=== PATIENT | male | born 1970 | race Hispanic/Latino ===

== ENCOUNTER 2019-10-02 17:25 | Inpatient (IN) | payer OTHER ==
[~2019-10-02] VITALS: Ht 172.7 cm; Wt 120.2 kg
[2019-10-02] MEDS ORDERED: SODIUM CHLORIDE 0.9% 1000ML 1,000 ML IV STA (17:34)
[2019-10-02 17:57] LABS: BASOPHILS % 1.1 % (0.0-1.0); EOSINOPHILS # (AUTO) 0.1 (0.0-0.4); EOSINOPHILS % 3.4 % (0.0-6.0); HEMATOCRIT 32.4 % (38.2-49.6); HEMOGLOBIN 11.8 g/dL (14.0-18.0); LYMPHOCYTES # (AUTO) 1.4 (1.0-3.2); LYMPHOCYTES % 38.8 % (18.0-39.1); MEAN CORPUSCULAR HEMOGLOBIN 34.5 pg (28-32); MEAN CORPUSCULAR HGB CONC 36.4 g/dL (31-35); MEAN CORPUSCULAR VOLUME 94.7 fL (81-99); MONOCYTES # (AUTO) 0.3 (0.2-0.8); MONOCYTES % 7.1 % (4.4-11.3); NEUTROPHILS # (AUTO) 1.7 (2.1-6.9); NEUTROPHILS % 49.3 % (38.7-80.0); PLATELET COUNT 119 x10e3/uL (140-360); RED BLOOD COUNT 3.42 x10e6/uL (4.3-5.7); RED CELL DISTRIBUTION WIDTH 14.1 % (11.7-14.4)
[2019-10-02 18:02] LABS: INR 1.28; PROTHROMBIN TIME 16.8 seconds (11.9-14.5)
[2019-10-02 18:13] LABS: ALANINE AMINOTRANSFERASE 20 IU/L (0-55); ALBUMIN 3.6 g/dL (3.5-5.0); ALBUMIN/GLOBULIN RATIO 0.9 (0.8-2.0); ALKALINE PHOSPHATASE 102 IU/L (40-150); ANION GAP 11.5 mmol/L (8-16); BLOOD UREA NITROGEN 10 mg/dL (7-26); BUN/CREATININE RATIO 14 (6-25); CALCIUM 8.7 mg/dL (8.4-10.2); CARBON DIOXIDE 25 mmol/L (22-29); CHLORIDE 107 mmol/L (98-107); CREATINE KINASE 165 IU/L (30-200); EST GLOMERULAR FILTRATION RATE > 60 ML/MIN (60-); GLUCOSE 117 mg/dL (74-118); LIPASE 34 U/L (8-78); POTASSIUM 3.5 mmol/L (3.5-5.1); SODIUM 140 mmol/L (136-145)
[2019-10-02 18:20] LABS: B-TYPE NATRIURETIC PEPTIDE2 46.3 pg/mL (0-100)
[2019-10-02] MEDS ORDERED: LACTULOSE SYRUP 20 GM/30 ML UDC PO PRN (18:45)
[2019-10-02] MEDS ORDERED: ASPIRIN 81 MG CHEW TAB PO ONE (18:45)
--- NOTE | 2019-10-02 18:55 | Diagnostic Imaging Report ---
History: Altered mental status, weakness Comparison studies: Brain MRI on 07/2019 Technique: Axial images were obtained from the skull base to the vertex. Coronal and sagittal reconstructions obtained from the axial data. Dose modulation, iterative reconstruction, and/or weight based adjustment of the mA/kV was utilized to reduce the radiation dose to as low as reasonably achievable. Intravenous contrast: None Findings: Scalp/skull: No abnormalities. No fractures, blastic or lytic lesions. Extra-axial spaces: No masses. No fluid collections. Brain sulci: Appropriate for age. Ventricles: Normal in size and configuration. No hydrocephalus. Parenchyma: No abnormal densities. No masses, hemorrhage, acute or chronic cortical vascular insults. Sellar/suprasellar region: No abnormalities Craniocervical junction: Patent foramen magnum. No Chiari one malformation. Incidental findings: None. IMPRESSION: 1. No abnormalities. 2. No changes when compared to the MRI on 08/04/2019. Signed by: Dr. Morgan Salinas M.D. on 10/02/2019 6:51 PM
--- NOTE | 2019-10-02 18:58 | Diagnostic Imaging Report ---
EXAM: CHEST SINGLE (PORTABLE) DATE: 10/02/2019 5:34 PM INDICATION: Sepsis, weakness ^ORDER PLACED BY ^[id number] ^1830 ^Y COMPARISON: Chest x-ray, 08/07/2019 FINDINGS: Lines and tubes: None. Previous left PICC is no longer seen. Heart size normal. No focal pulmonary opacity, pleural effusion or pneumothorax. Upper abdomen unremarkable. No acute bony abnormality. IMPRESSION: No evidence for acute disease. Signed by: Dr. Ralph Camp M.D. on 10/02/2019 6:55 PM
[2019-10-02] MEDS: SODIUM CHLORIDE 0.9% 1000ML 1,000 ML IV SCH (19:20)
[2019-10-02] MEDS: ENOXAPARIN SODIUM INJ 100 MG/ML SYR SC SCH (19:20)
[2019-10-02] MEDS ORDERED: VITAMIN d PO (19:23)
[2019-10-02] MEDS ORDERED: LEVOTHYROXINE50 MCG PO (19:23)
[2019-10-02] MEDS ORDERED: ACETAMINOPHEN 325 MG TAB PO PRN (19:30)
[2019-10-02] MEDS: LACTULOSE SYRUP 20 GM/30 ML UDC PO SCH (20:00)
--- NOTE | 2019-10-02 20:30 | NUR ---
Received report from ER nurse.
--- NOTE | 2019-10-02 20:45 | NUR ---
Patient arrived to floor via stretcher. Patient lethargic with eyes close. Family at bedside.
[2019-10-02] MEDS ORDERED: ENOXAPARIN SODIUM INJ 100 MG/ML SYR SC SCH (21:00)
[2019-10-02 21:51] VITALS: BP 141/81
[2019-10-02 22:00] VITALS: BP 130/83
[2019-10-02 22:50] LABS: AMPHETAMINES SCREEN,URINE NEGATIVE (NEGATIVE); PHENCYCLIDINE SCREEN,URINE NEGATIVE (NEGATIVE)
[2019-10-02 22:51] LABS: BENZODIAZEPINES SCREEN,URINE NEGATIVE (NEGATIVE); CLARITY,URINE CLEAR (CLEAR); COLOR,URINE YELLOW (YELLOW); LEUKOCYTE ESTERASE ,URINE NEGATIVE (NEGATIVE); NITRITE,URINE NEGATIVE (NEGATIVE); PROTEIN,URINE DIPSTICK NEGATIVE (NEGATIVE)
[2019-10-02 22:52] LABS: BILIRUBIN,URINE NEGATIVE (NEGATIVE); KETONES,URINE NEGATIVE (NEGATIVE); URINE UROBILINOGEN 0.2 mg/dL (0.2 - 1)
[2019-10-02 23:10] LABS: BACTERIA,URINE FEW /HPF; EPITHELIAL CELLS,URINE FEW /LPF; RBC,URINE 0-5 /HPF (0-5); WBC,URINE (MAN) 0-5 /HPF (0-5)
[2019-10-03] VITALS (9 sets, daily range): BP systolic 130–146; BP diastolic 74–87
--- NOTE | 2019-10-03 01:00 | NUR ---
Patient admit and assessment completed. Pateint denies pain or discomfort at this time
[2019-10-03 02:18] LABS: CREATINE KINASE MB 0.7 ng/mL (0-5.0)
[2019-10-03] MEDS: SODIUM CHLORIDE 0.9% 1000ML 1,000 ML IV SCH ×3 (03:46→22:52)
--- NOTE | 2019-10-03 04:28 | NUR ---
Patient up ambulating to bathroom. Urine sample collected and sent to the lab.
[2019-10-03 06:14] LABS: EOSINOPHILS # (AUTO) 0.2 (0.0-0.4); EOSINOPHILS % 4.8 % (0.0-6.0); HEMATOCRIT 29.8 % (38.2-49.6); HEMOGLOBIN 10.7 g/dL (14.0-18.0); LYMPHOCYTES # (AUTO) 1.6 (1.0-3.2); LYMPHOCYTES % 49.5 % (18.0-39.1); MEAN CORPUSCULAR HEMOGLOBIN 34.3 pg (28-32); MEAN CORPUSCULAR HGB CONC 35.9 g/dL (31-35); MEAN CORPUSCULAR VOLUME 95.5 fL (81-99); MONOCYTES # (AUTO) 0.3 (0.2-0.8); MONOCYTES % 8.6 % (4.4-11.3); NEUTROPHILS # (AUTO) 1.1 (2.1-6.9); NEUTROPHILS % 36.1 % (38.7-80.0); PLATELET COUNT 76 x10e3/uL (140-360); RED BLOOD COUNT 3.12 x10e6/uL (4.3-5.7)
[2019-10-03 06:32] LABS: ALANINE AMINOTRANSFERASE 16 IU/L (0-55); ALKALINE PHOSPHATASE 71 IU/L (40-150); ANION GAP 7.6 mmol/L (8-16); BLOOD UREA NITROGEN 8 mg/dL (7-26); BUN/CREATININE RATIO 13 (6-25); CALCIUM 7.9 mg/dL (8.4-10.2); CARBON DIOXIDE 26 mmol/L (22-29); CHLORIDE 109 mmol/L (98-107); CREATININE, SERUM 0.61 mg/dL (0.72-1.25); EST GLOMERULAR FILTRATION RATE > 60 ML/MIN (60-); GLUCOSE 84 mg/dL (74-118); POTASSIUM 3.6 mmol/L (3.5-5.1); SODIUM 139 mmol/L (136-145)
[2019-10-03] MEDS: ENOXAPARIN SODIUM INJ 100 MG/ML SYR SC SCH ×2 (07:00→19:00)
[2019-10-03] MEDS: LACTULOSE SYRUP 20 GM/30 ML UDC PO SCH ×4 (09:15→21:20)
[2019-10-03 10:08] LABS: CREATINE KINASE 147 IU/L (30-200)
[2019-10-03] MEDS ORDERED: RIFAXIMIN 200 MG TAB PO STA (10:33)
[2019-10-03 10:51] LABS: CREATINE KINASE MB < 1.00 ng/mL (0-4.3)
[2019-10-03] MEDS: RIFAXIMIN 550 MG TABLET PO SCH ×2 (11:00→21:20)
--- NOTE | 2019-10-03 14:31 | NUR ---
DATE OF CONSULTATION: 10/03/2019 CONSULTING PHYSICIAN: Juanita Gonzalez PA-C, Hematology-Oncology Service. REASON FOR CONSULTATION: Evaluation and management of patient with pancytopenia, who was present with altered mental status. HISTORY OF PRESENTING ILLNESS: Mr. Farris is a 48-year-old young gentleman with no significant past medical history other than chronic scaly skin and history of meningitis in childhood. He is known to me from previous admission in July and follows up in clinic in which we see him for anemia and thrombocytopenia. He now presented again to the emergency room for similar symptoms of altered mental status concerning for hepatic encephalopathy. Due to pancytopenia, Hematology/Oncology has been consulted to assist with management. Presently, the patient is sitting up in the best in [facility] with mother at bedside. They are supposed to follow up with Dr. Justin Harry for procedure (liver biopsy?) and MRI with liver protocol. Otherwise, he denies any new complaints. PAST MEDICAL HISTORY: 1. History of childhood meningitis. 2. Chronic scaly skin of uncertain etiology. PAST SURGICAL HISTORY: Unknown. SOCIAL HISTORY: No reported history of smoking, alcohol use, or illicit drug use. ALLERGIES: NO KNOWN DRUG ALLERGIES. CURRENT MEDICATIONS: Reviewed as per electronic medical record. REVIEW OF SYSTEMS: A 14-point review of system not obtainable. LABORATORY DATA: White blood cell count of 3.15, hemoglobin 10.7, hematocrit 29.8, platelets 76 BUN 8, creatinine 0.61 Ammonia 284 --> 192 Cardiac enzymes normal Lipase 34 PT 16.8 INR 1.28 UDS negative ASSESSMENT AND PLAN: Mr. Farris is a 48-year-old young gentleman with no significant past medical history other than chronic scaly skin and history of meningitis in childhood. He is known to me from previous admission in July and follows up in clinic in which we see him for anemia and thrombocytopenia. He now presented again to the emergency room for similar symptoms of altered mental status concerning for hepatic encephalopathy. Due to pancytopenia, Hematology/Oncology has been consulted to assist with management. Presently, the patient is sitting up in the best in [place] with mother at bedside. They are supposed to follow up with Dr. Justin Harry for procedure (liver biopsy?) and MRI with liver protocol. Otherwise, he denies any new complaints. 1. Hepatic Encephalopathy: Appears related to underlying liver disease of uncertain etiology. Recent abdominal US revealed coarse echotexture of liver, normal spleen, and prominent vessels adjacent to the kidney and spleen on the left may represent varices from portal hypertension. CXR and Brain CT scan on admission unremarkable. On lactulose and Xifaxan. Ammonia level improving. Will benefit from MRI with liver protocol for further evaluation which is being set up outpatient. Monitor for now. 2. Leukopenia: Uncertain etiology, abd US on 08/04/19 revealed splenomegaly which could be contributing however repeat US outpatient revealed normal spleen. Neutropenia predominant. Counts stable. FAUSTO negative. Patient is planning for bone marrow biopsy to be done outpatient. Monitor closely. 3. Thrombocytopenia: Appears secondary to underlying liver disease. Patient counts currently trending down however remain in noncritical range and actually improved from prior admission. Monitor for now. 4. Anemia: Recent anemia panel performed outpatient unremarkable without iron or vitamin deficiency and no evidence of hemolysis with normal retic count. Hemoglobin trending down. Monitor for now. 5. DVT prophylaxis: On Lovenox. Above plan discussed with . Thank you for the consult. I will continue to be available. Please call with questions.
[2019-10-03 18:17] LABS: CREATINE KINASE MB 1.1 ng/mL (0-5.0)
--- NOTE | 2019-10-03 19:33 | NUR ---
report given to oncoming nurse , walking rounds complete.
--- NOTE | 2019-10-03 21:20 | NUR ---
PATIENT IS RESTING IN BED IN STABLE CONDITION, NO SIGNS OF CONFUSION OR DISTRESS NOTED. IV FLUIDS ARE RUNNING AT ORDERED RATE AND PATIENT VOICES NO PAIN AT THIS TIME. DRY, FLAKING SKIN IS NOTED ON PATIENT, BED IS IN LOWEST POSITION, SIDE RAILS ARE UP, CALL LIGHT IS WITHIN REACH, WILL CONTINUE TO MONITOR.
[2019-10-04] VITALS (8 sets, daily range): BP systolic 121–153; BP diastolic 62–87
--- NOTE | 2019-10-04 00:40 | Consultation ---
DATE OF CONSULTATION: 10/03/2019 Cardiology Consult Note REASON FOR CONSULT: Elevated troponins. CHIEF COMPLAINT: Confusion. HISTORY OF PRESENT ILLNESS: The patient is a 48-year-old male with previous history of cardiovascular disease, history of cirrhosis, and hepatic encephalopathy, who was brought in by his mother for confusion and shakiness. Denies any chest pain, shortness of breath, lower extremity edema, orthopnea, or PND. Denies any palpitations or syncope. No prior history of DE stents or CABG. The patient is not a diabetic. The patient does not smoke, drink, or abuse drugs. He currently denies any ongoing chest pains. PAST MEDICAL HISTORY: As described above. SOCIAL HISTORY: He does not smoke, drink, or abuse drugs. FAMILY HISTORY: Noncontributory. REVIEW OF SYSTEMS: As per HPI, otherwise negative. OUTPATIENT MEDICATIONS: Reviewed. ALLERGIES: REVIEWED. NO KNOWN DRUG ALLERGIES. OBJECTIVE: VITAL SIGNS: Temperature afebrile, pulse 70, respiratory rate 20, blood pressure 140/87, and saturating 98% on room air. GENERAL: Middle-aged man, in no acute distress. CARDIOVASCULAR: Regular rate and rhythm. No murmurs, rubs, or gallops. LUNGS: Clear to auscultation bilaterally. ABDOMEN: Soft, nontender, nondistended. Obese. NEURO AND PSYCH: Alert and oriented to person, place, and time. Normal affect. INPATIENT MEDICATIONS: Reviewed. LABORATORY DATA: Reviewed, notable for hemoglobin of 10.7, platelet count of 76. Troponin on admission was noted to be 0.323 with normal CK and CK-MB. BNP was 46. TELEMETRY DATA: Reviewed, shows normal sinus rhythm. IMAGING DATA: Reviewed. Brain CT shows no abnormalities. Chest x-ray showed no evidence of acute disease. ASSESSMENT AND PLAN: 1. Hepatic encephalopathy. 2. Elevated troponin. PLAN: Elevated troponin, not consistent with acute coronary syndrome. The patient has no symptoms. EKG was nonischemic. Echocardiogram is pending. Once acute medical issues resolve, recommend doing a stress test on Sunday. Thank you for this consult. We will continue to follow. Calixto Faulkner MD KVP/MODL /[id number]
[2019-10-04] MEDS: SODIUM CHLORIDE 0.9% 1000ML 1,000 ML IV SCH ×3 (01:31→21:03)
--- NOTE | 2019-10-04 05:45 | NUR ---
PAGED DR. Christopher HERNÁNDEZ REGARDING ORDERS FOR PATIENT TO HAVE LIVER AND SPLEEN IMAGE SCAN WITH NUCLEAR MED. INFORMED THAT NUCLEAR MED DOES NOT DO THIS ON THE WEEKEND UNLESS IT IS A STAT ORDER, AWAITING CALL BACK.
[2019-10-04 07:30] LABS: BASOPHILS % 0.8 % (0.0-1.0); EOSINOPHILS # (AUTO) 0.1 (0.0-0.4); EOSINOPHILS % 4.7 % (0.0-6.0); HEMATOCRIT 29.5 % (38.2-49.6); HEMOGLOBIN 10.4 g/dL (14.0-18.0); LYMPHOCYTES # (AUTO) 1.3 (1.0-3.2); LYMPHOCYTES % 52.2 % (18.0-39.1); MEAN CORPUSCULAR HEMOGLOBIN 33.7 pg (28-32); MEAN CORPUSCULAR HGB CONC 35.3 g/dL (31-35); MEAN CORPUSCULAR VOLUME 95.5 fL (81-99); MONOCYTES # (AUTO) 0.2 (0.2-0.8); MONOCYTES % 7.9 % (4.4-11.3); NEUTROPHILS # (AUTO) 0.9 (2.1-6.9); NEUTROPHILS % 34.4 % (38.7-80.0); PLATELET COUNT 72 x10e3/uL (140-360); RED BLOOD COUNT 3.09 x10e6/uL (4.3-5.7); RED CELL DISTRIBUTION WIDTH 13.9 % (11.7-14.4)
[2019-10-04 07:53] LABS: ALANINE AMINOTRANSFERASE 15 IU/L (0-55); ALBUMIN 3.2 g/dL (3.5-5.0); ALBUMIN/GLOBULIN RATIO 1.1 (0.8-2.0); ALKALINE PHOSPHATASE 70 IU/L (40-150); ANION GAP 6.5 mmol/L (8-16); BLOOD UREA NITROGEN 7 mg/dL (7-26); BUN/CREATININE RATIO 11 (6-25); CALCIUM 7.9 mg/dL (8.4-10.2); CARBON DIOXIDE 26 mmol/L (22-29); CHLORIDE 110 mmol/L (98-107); CREATININE, SERUM 0.66 mg/dL (0.72-1.25); EST GLOMERULAR FILTRATION RATE > 60 ML/MIN (60-); GLUCOSE 83 mg/dL (74-118); POTASSIUM 3.5 mmol/L (3.5-5.1); SODIUM 139 mmol/L (136-145)
[2019-10-04] MEDS: RIFAXIMIN 550 MG TABLET PO SCH ×2 (09:13→21:03)
[2019-10-04] MEDS: LACTULOSE SYRUP 20 GM/30 ML UDC PO SCH ×3 (09:13→21:03)
--- NOTE | 2019-10-04 10:52 | Progress Note ---
DATE: 10/04/2019 Cardiology Progress Note SUBJECTIVE: The patient reports that he feels quite well. This morning, he does endorse being a little bit anxious, but otherwise well. Denies any chest pain or shortness of breath. OBJECTIVE: VITAL SIGNS: Temperature 97.4, pulse 68, respiratory rate 20, blood pressure 147/75, and oxygen saturation 93% on room air. CARDIOVASCULAR MEDICATIONS: None at this time. LABORATORY DATA: WBC 2.53, hemoglobin 10.3, hematocrit 29.5, and platelets 72. Sodium 139, potassium 3.5, BUN 7, creatinine 0.66, AST 35, ALT 15, and alkaline phosphatase 70. TELEMETRY: Normal sinus rhythm. OBJECTIVE: GENERAL: Alert and oriented x3. Resting comfortably in bed. Does not appear to be in acute distress. Mother at the bedside. NECK: Supple. No JVD noted. CARDIOVASCULAR: Regular rate and rhythm. No murmurs, no gallops. LUNGS: Clear to auscultation throughout. ABDOMEN: Soft, round, and nontender. LOWER EXTREMITIES: Trace edema bilaterally. 2+ pedal pulses. ASSESSMENT: 1. Hepatic encephalopathy. 2. Elevated troponin. 3. Hypertension. 4. History of cirrhosis. 5. Altered mental status. PLAN: Elevated troponins not consistent with acute coronary syndrome. The patient appears and reports to be asymptomatic at this time. We will continue to monitor this patient very closely. Monitor mental status closely. Echocardiogram, awaiting review. Recommendations will follow. Plan for a stress test on Sunday. Dictated by Suma Alvarado NP MD HERNANDEZ Landin/YOKO /[id number] cc: Suma Alvarado NP
--- NOTE | 2019-10-04 11:05 | NUR ---
DATE OF CONSULTATION: 10/03/2019 CONSULTING PHYSICIAN: Juanita Gonzalez PA-C, Hematology-Oncology Service. REASON FOR CONSULTATION: Evaluation and management of patient with pancytopenia, who was present with altered mental status. HISTORY OF PRESENTING ILLNESS: Patient resting comfortably with mother at bedside. He denies any new complaints. REVIEW OF SYSTEMS: A 14-point review of system negative unless otherwise stated in the HPI. LABORATORY DATA: Vitals signs: Reviewed per SEP. Afebrile. White blood cell count of 2.53, hemoglobin 10.4, hematocrit 29.5, platelets 72 BUN 7, creatinine 0.66 Ammonia 192 --> 88 ASSESSMENT AND PLAN: Mr. Farris is a 48-year-old young gentleman with no significant past medical history other than chronic scaly skin and history of meningitis in childhood. He is known to me from previous admission in July and follows up in clinic in which we see him for anemia and thrombocytopenia. He now presented again to the emergency room for similar symptoms of altered mental status concerning for hepatic encephalopathy. Due to pancytopenia, Hematology/Oncology has been consulted to assist with management. 1. Hepatic Encephalopathy: Appears related to underlying liver disease of uncertain etiology. Recent abdominal US revealed coarse echotexture of liver, normal spleen, and prominent vessels adjacent to the kidney and spleen on the left may represent varices from portal hypertension. CXR and Brain CT scan on admission unremarkable. On lactulose and Xifaxan. Ammonia level improving. AMS resolved. Planning for liver and spleen scan. Monitor for now. GI on board. 2. Leukopenia: Uncertain etiology, abd US on 08/04/19 revealed splenomegaly which could be contributing however repeat US outpatient revealed normal spleen. Neutropenia predominant. FAUSTO negative. Counts trending down slighty, if counts continue to trend down he may benefit from growth factor support. Patient is planning for bone marrow biopsy to be done outpatient. Monitor closely. 3. Thrombocytopenia: Appears secondary to underlying liver disease. Patient counts are stable and remain in noncritical range and actually improved from prior admission. Monitor for now. 4. Anemia: Recent anemia panel performed outpatient unremarkable without iron or vitamin deficiency and no evidence of hemolysis with normal retic count. Hemoglobin stable. Monitor for now. 5. Elevated troponin: Plan for stress test Sunday. Cardiology on board. 6. DVT prophylaxis: On Lovenox on hold for procedure. Above plan discussed with . Thank you for the consult. I will continue to be available. Please call with questions.
--- NOTE | 2019-10-04 15:07 | Progress Note ---
DATE: 10/04/2019 Internal Medicine Progress Note SUBJECTIVE: The patient is sleeping right now. OBJECTIVE: VITAL SIGNS: Show blood pressure 121/62, temperature 36.6, heart rate 74 per minute, respiratory rate 20 per minute, oxygen saturation 96%. LABORATORY DATA: On the CBC; white count 2.53, hemoglobin 10.4, hematocrit 29.5, platelet count 72,000. BMP; sodium 139, potassium 3.5, chloride 110, carbon dioxide 26, BUN 7, creatinine 0.66, glucose 83, calcium 7.9, total bilirubin 1.9, AST 35, ALT 15, alkaline phosphatase 70, ammonia 88, creatine kinase 156, troponin 0.196. Total protein 6.1, albumin 3.2, globulin 2.9. Toxicology screen is completely negative. Coagulation showed PT elevated at 16.8, INR 1.28. CT of the head showed no abnormalities, no change compared with MRI done on August 04, 2019. Chest x-ray showed no evidence of acute disease. IMPRESSION: 1. Pancytopenia, most likely secondary to cirrhosis. 2. Hepatic encephalopathy. 3. Obesity. PLAN OF TREATMENT: We are going to continue current medication, which include normal saline 125 mL an hour, Tylenol 650 mg q.4 hours as needed for pain or fever, lactulose 20 g three times a day and Xifaxan twice a day. I am going to order ammonia level tomorrow. MD STONEY Mckinley/YOKO /[id number]
--- NOTE | 2019-10-04 19:23 | NUR ---
REPORT GIVEN TO ENID SAMUEL. PT AAOX3. ACYANOTIC. PT VOIDING TO TOILET IN RESTROOM. NO DISTRESS NOTED.
[2019-10-04] MEDS ORDERED: PHYTONADIONE 10 MG/ML AMP SQ ONE (23:30)
[2019-10-05] VITALS (8 sets, daily range): BP systolic 127–143; BP diastolic 63–91
[2019-10-05] MEDS: SODIUM CHLORIDE 0.9% 1000ML 1,000 ML IV SCH ×2 (01:31→05:30)
--- NOTE | 2019-10-05 07:27 | NUR ---
Assumed care at 0700. Pt resting in bed watching television. No distress noted. Call light in reach. Siderails up x2. Bed low and locked.
[2019-10-05] MEDS: LACTULOSE SYRUP 20 GM/30 ML UDC PO SCH (08:39)
[2019-10-05] MEDS: RIFAXIMIN 550 MG TABLET PO SCH ×2 (08:40→20:30)
--- NOTE | 2019-10-05 10:34 | NUR ---
HEMATOLOGY/ONCOLOGY PROGRESS NOTE: DATE OF CONSULTATION: 10/03/2019 CONSULTING PHYSICIAN: Juanita Gonzalez PA-C, Hematology-Oncology Service. REASON FOR CONSULTATION: Evaluation and management of patient with pancytopenia, who was present with altered mental status. HISTORY OF PRESENTING ILLNESS: Patient resting comfortably with mother at bedside. He complains of diarrhea overnight due to lactulose, refused dose this morning. Heading down to nuc med liver/spleen scan. REVIEW OF SYSTEMS: A 14-point review of system negative unless otherwise stated in the HPI. LABORATORY DATA: 10/05/2019: Vitals signs: Reviewed per SEP. Afebrile. 10/04/2019: White blood cell count of 2.53, hemoglobin 10.4, hematocrit 29.5, platelets 72 BUN 7, creatinine 0.66 Ammonia 192 --> 88 --> 102 ASSESSMENT AND PLAN: Mr. Farris is a 48-year-old young gentleman with no significant past medical history other than chronic scaly skin and history of meningitis in childhood. He is known to me from previous admission in July and follows up in clinic in which we see him for anemia and thrombocytopenia. He now presented again to the emergency room for similar symptoms of altered mental status concerning for hepatic encephalopathy. Due to pancytopenia, Hematology/Oncology has been consulted to assist with management. 1. Hepatic Encephalopathy: Appears related to underlying liver disease of uncertain etiology. Recent abdominal US revealed coarse echotexture of liver, normal spleen, and prominent vessels adjacent to the kidney and spleen on the left may represent varices from portal hypertension. CXR and Brain CT scan on admission unremarkable. On lactulose and Xifaxan. Ammonia level improving. AMS resolved. Planning for liver and spleen scan today. Monitor for now. GI on board. 2. Leukopenia: Uncertain etiology, abd US on 08/04/19 revealed splenomegaly which could be contributing however repeat US outpatient revealed normal spleen. Neutropenia predominant. FAUSTO negative. Counts trending down slighty, if counts continue to trend down he may benefit from growth factor support. Patient is planning for bone marrow biopsy to be done outpatient. CBC in the morning. Monitor closely. 3. Thrombocytopenia: Appears secondary to underlying liver disease. Patient counts are stable and remain in noncritical range. Monitor for now. 4. Anemia: Recent anemia panel performed outpatient unremarkable without iron or vitamin deficiency and no evidence of hemolysis with normal retic count. Hemoglobin stable. Monitor for now. 5. Elevated troponin: Plan for stress test Sunday. Cardiology on board. 6. DVT prophylaxis: On Lovenox on hold for procedure. Patient ambulatory. Above plan discussed with Dr. Dominguez. Thank you for the consult. I will continue to be available. Please call with questions.
--- NOTE | 2019-10-05 12:16 | Diagnostic Imaging Report ---
Liver-Spleen Scan Clinical information: 48 M with shaking and disorientation x3 days; concern for liver disease Comparison: Abdominal ultrasound 08/04/2019; CT abdomen/pelvis 08/03/2019 Report: Following intravenous administration of 6 mCi of Tc-99 and sulfur colloid, images of the upper abdomen and lower chest were obtained in multiple projections. The liver mildly reduced in size. The spleen appears normal in size. Distribution of tracer activity is heterogeneous throughout the hepatic parenchyma with two focal areas of relatively increased tracer in the right hepatic lobe. Distribution of tracer in the spleen in homogenous. Increased tracer activity is prominent in marrow and mildly increased tracer is seen in the lungs diffusely. No apparent shift of tracer from the liver is present to suggest hypersplenism. Impression: 1. Findings consistent with moderate cirrhosis of the liver given size of liver and extent of colloid shift to the marrow and lungs. 2. Foci of increased Kupfer cell activity in the right hepatic lobe consistent with foci of liver parenchyma regeneration. 3. Hypersplenism is not present. Signed by: Dr. Jacque Tan M.D. on 10/05/2019 12:13 PM
--- NOTE | 2019-10-05 12:35 | NUR ---
Cinthia Roach at Dr. Bruce Harry's answering service to inform him of pt's refusal of lactulose and findings of liver/spleen scan with nuclear med. Currently awaiting call back.
[2019-10-05] MEDS ORDERED: LACTULOSE SYRUP 20 GM/30 ML UDC PO PRN (13:00)
[2019-10-05] MEDS ORDERED: LACTULOSE SYRUP 20 GM/30 ML UDC PO NR (13:15)
--- NOTE | 2019-10-05 13:36 | Progress Note ---
DATE: 10/05/2019 Internal Medicine Progress Note SUBJECTIVE: The patient is doing well. He was refusing early on the lactulose. We are going to change it to once a day and continue monitoring the ammonia level very carefully. PHYSICAL EXAMINATION: HEART: Showed regular rhythm. Normal S1, S2 sound. LUNGS: Clear bilaterally. ABDOMEN: Soft. EXTREMITIES: Show no edema. VITAL SIGNS: Blood pressure 137/65, heart rate 66 per minute, respiratory rate 20 per minute, temperature 97.9. LABORATORY DATA: On the blood work, we have CBC; white blood count 2.53, hemoglobin 10.4, hematocrit 29.5, platelet count 72,000. On the BMP; sodium 139, potassium 3.5, chloride 110, CO2 of 26, BUN 7, creatinine 0.66, glucose 83, calcium 7.9, total bilirubin 1.9, AST 35, ALT 15, alkaline phosphatase is 70, ammonia is 102. CK 156, CK-MB 1.10, troponin 0.196. Total protein 6.1, albumin 3.2. IMPRESSION: 1. Pancytopenia secondary to cirrhosis of the liver. 2. Hepatic encephalopathy. 3. Obesity. 4. Cirrhosis of the liver. PLAN OF TREATMENT: We are going to continue lactulose. We are going to increase to three times a day. Ammonia level is elevated. The patient also refusing to take the lactulose anyway. Continue Tylenol 650 mg q.6 hours as needed for mild pain. Continue lactulose 30 g daily, and Xifaxan 550 mg twice a day. Ammonia level tomorrow. MD STONEY Mckinley/YOKO /[id number]
--- NOTE | 2019-10-05 19:12 | NUR ---
Pt resting in bed with eyes closed. Acyanotic. No distress noted. Patient's mother present at bedside. Report given to ENID José
--- NOTE | 2019-10-05 20:30 | NUR ---
PATIENT IS RESTING IN BED IN STABLE CONDITION, NO SIGNS OF DISTRESS NOTED. IV FLUIDS ARE NOW DISCONTINUED AND PATIENT VOICES NO PAIN AT THIS TIME. DRY, FLAKING SKIN IS NOTED ON PATIENT, BED IS IN LOWEST POSITION, SIDE RAILS ARE UP, CALL LIGHT IS WITHIN REACH, WILL CONTINUE TO MONITOR.
[2019-10-06] VITALS (9 sets, daily range): BP systolic 122–138; BP diastolic 64–79
[2019-10-06 06:08] LABS: BASOPHILS % 1.2 % (0.0-1.0); EOSINOPHILS # (AUTO) 0.2 (0.0-0.4); EOSINOPHILS % 6.3 % (0.0-6.0); HEMATOCRIT 29.4 % (38.2-49.6); HEMOGLOBIN 10.5 g/dL (14.0-18.0); LYMPHOCYTES # (AUTO) 1.3 (1.0-3.2); LYMPHOCYTES % 52.2 % (18.0-39.1); MEAN CORPUSCULAR HEMOGLOBIN 34.1 pg (28-32); MEAN CORPUSCULAR HGB CONC 35.7 g/dL (31-35); MEAN CORPUSCULAR VOLUME 95.5 fL (81-99); MONOCYTES # (AUTO) 0.2 (0.2-0.8); MONOCYTES % 6.3 % (4.4-11.3); NEUTROPHILS # (AUTO) 0.9 (2.1-6.9); NEUTROPHILS % 33.6 % (38.7-80.0); PLATELET COUNT 68 x10e3/uL (140-360); RED BLOOD COUNT 3.08 x10e6/uL (4.3-5.7); RED CELL DISTRIBUTION WIDTH 13.9 % (11.7-14.4)
[2019-10-06] MEDS: LACTULOSE SYRUP 20 GM/30 ML UDC PO SCH (08:55)
[2019-10-06] MEDS: RIFAXIMIN 550 MG TABLET PO SCH ×2 (08:55→20:07)
--- NOTE | 2019-10-06 09:00 | NUR ---
HEMATOLOGY/ONCOLOGY PROGRESS NOTE: DATE OF CONSULTATION: 10/03/2019 CONSULTING PHYSICIAN: Juanita Gonzalez PA-C, Hematology-Oncology Service. REASON FOR CONSULTATION: Evaluation and management of patient with pancytopenia, who was present with altered mental status. HISTORY OF PRESENTING ILLNESS: Patient resting comfortably, no new complaints. Ammonia trending back up. REVIEW OF SYSTEMS: A 14-point review of system negative unless otherwise stated in the HPI. LABORATORY DATA: 10/06/2019: Vitals signs: Reviewed per MAR. Afebrile. 10/04/2019: White blood cell count of 2.55, hemoglobin 10.5, hematocrit 29.4, platelets 68 10/05/2019: BUN 7, creatinine 0.66 Ammonia 192 --> 88 --> 102 --> 156 RADIOLOGY DATA: Liver/spleen NM scan: 1. Findings consistent with moderate cirrhosis of the liver given size of liver and extent of colloid shift to the marrow and lungs. 2. Foci of increased Kupfer cell activity in the right hepatic lobe consistent with foci of liver parenchyma regeneration. 3. Hypersplenism is not present. ASSESSMENT AND PLAN: Mr. Farris is a 48-year-old young gentleman with no significant past medical history other than chronic scaly skin and history of meningitis in childhood. He is known to me from previous admission in July and follows up in clinic in which we see him for anemia and thrombocytopenia. He now presented again to the emergency room for similar symptoms of altered mental status concerning for hepatic encephalopathy. Due to pancytopenia, Hematology/Oncology has been consulted to assist with management. 1. Hepatic Encephalopathy: Appears related to underlying liver disease. Recent abdominal US revealed coarse echotexture of liver, normal spleen, and prominent vessels adjacent to the kidney and spleen on the left may represent va rices from portal hypertension. CXR and Brain CT scan on admission unremarkable. On lactulose daily and Xifaxan BID. Ammonia level trending back up . AMS resolved. S/p liver/spleen NM scan revealed moderate cirrhosis and no signs of splenomegaly. Monitor for now. GI on board. 2. Leukopenia: Uncertain etiology although could be related to cirrhosis. Liver/spleen NM scan without splenomegaly. Neutropenia predominant. FAUSTO negative. Counts stable, if counts trend down he may benefit from growth factor support. Patient is planning for bone marrow biopsy to be done outpatient. Monitor closely. 3. Thrombocytopenia: Appears secondary to underlying liver disease. Patient counts are stable and remain in noncritical range. Monitor for now. 4. Anemia: Recent anemia panel performed outpatient unremarkable without iron or vitamin deficiency and no evidence of hemolysis with normal retic count. Hemoglobin stable. Monitor for now. 5. Elevated troponin: Plan for stress test today. Cardiology on board. 6. Obesity: Recommend lifestyle modifications inlcuding improving diet and exercise as his obesity is contributing to fatty liver. 7. DVT prophylaxis: SCDs/ambulatory. 8. Dispo: Patient clear for discharge from HemOnc standpoint. Ammonia trending up, lactulose adjustment per primary. Above plan discussed with Dr. Dominguez. Thank you for the consult. I will continue to be available. Please call with questions.
[2019-10-06 09:43] LABS: EOSINOPHILS % (MANUAL) 5 % (0-7); LYMPHOCYTES % (MANUAL) 54 % (19-48); MONOCYTES % (MANUAL) 5 % (3.4-9.0); NEUTROPHILS % (MANUAL) 35 % (40-74)
--- NOTE | 2019-10-06 09:45 | NUR ---
patient up in bed, AAOx3, Not in any distress, keep monitoring, family at bed side
--- NOTE | 2019-10-06 11:06 | NUR ---
CALL RECEIVED FROM [facility] AGENTS' RECORDS CLERK FOR [facility]; JAMILA @ [phone]. INFORMED PT'S AMMONIA LEVEL ELEVATED; 156. INFORMED PT AGREED TO TAKE LACTULOSE TODAY. STATES HE DOES NOT ANSWER THE PHONE AT HOME. STATES IF PT HAS ANY NEEDS, SHE IS AVAILABLE TO ASSIST W DC PLANNING.
--- NOTE | 2019-10-06 13:30 | Progress Note ---
DATE: 10/06/2019 Cardiology Progress Note SUBJECTIVE: The patient is feeling well. Denies any chest pain or shortness of breath. OBJECTIVE: VITAL SIGNS: Temperature is 96.5, heart rate 75, respirations 16, blood pressure is 133/73, oxygen saturation is 97% on room air. GENERAL: Well-appearing in no apparent distress. CARDIOVASCULAR: Regular rate and rhythm. LUNGS: Clear to auscultation. ABDOMEN: Soft, nontender, nondistended. EXTREMITIES: No clubbing, cyanosis, or edema. VASCULAR: 2+ pulses. NEUROLOGIC: No focal deficits noted. LABORATORY DATA: Reviewed. Troponins have remained negative. IMAGING DATA: Telemetry monitoring was reviewed by myself and shows normal sinus rhythm. ASSESSMENT: 1. Hepatic encephalopathy, resolved. 2. Minimally elevated troponin type 2. 3. Hypertension. 4. History of cirrhosis. PLAN: RECOMMENDATIONS: His elevated troponin level was not consistent with acute coronary syndrome. Subsequent levels within normal limits. He is asymptomatic from a cardiovascular standpoint. His echocardiogram showed preserved left ventricular systolic function. The patient does not require stress test as an inpatient. He could be discharged with outpatient followup. Darian Vann DO BM/MODL /[id number]
--- NOTE | 2019-10-06 19:25 | NUR ---
Received change of shift report from AM shift. Walking rounds completed.
--- NOTE | 2019-10-06 20:47 | NUR ---
Patient in bed. AAOx3. Denies pain or discomfort at this time. IV intact to right AC 20G HL. Continue monitor.
--- NOTE | 2019-10-06 23:58 | NUR ---
Patient resting quitly with no c/o at this time. Continue monitor.
[2019-10-07 03:53] VITALS: BP 138/71
[2019-10-07 07:41] VITALS: BP 146/74
[2019-10-07 08:21] VITALS: BP 146/74
--- NOTE | 2019-10-07 08:47 | NUR ---
HEMATOLOGY/ONCOLOGY PROGRESS NOTE: DATE OF CONSULTATION: 10/03/2019 CONSULTING PHYSICIAN: Juanita Gonzalez PA-C, Hematology-Oncology Service. REASON FOR CONSULTATION: Evaluation and management of patient with pancytopenia, who was present with altered mental status. HISTORY OF PRESENTING ILLNESS: Patient resting comfortably, no new complaints. REVIEW OF SYSTEMS: A 14-point review of system negative unless otherwise stated in the HPI. LABORATORY DATA: 10/06/2019: Vitals signs: Reviewed per MAR. Afebrile. 10/04/2019: White blood cell count of 2.55, hemoglobin 10.5, hematocrit 29.4, platelets 68 10/05/2019: BUN 7, creatinine 0.66 Ammonia 192 --> 88 --> 102 --> 156 --> 10/07/19 ammonia level pending RADIOLOGY DATA: Liver/spleen NM scan: 1. Findings consistent with moderate cirrhosis of the liver given size of liver and extent of colloid shift to the marrow and lungs. 2. Foci of increased Kupfer cell activity in the right hepatic lobe consistent with foci of liver parenchyma regeneration. 3. Hypersplenism is not present. ASSESSMENT AND PLAN: Mr. Farris is a 48-year-old young gentleman with no significant past medical history other than chronic scaly skin and history of meningitis in childhood. He is known to me from previous admission in July and follows up in clinic in which we see him for anemia and thrombocytopenia. He now presented again to the emergency room for similar symptoms of altered mental status concerning for hepatic encephalopathy. Due to pancytopenia, Hematology/Oncology has been consulted to assist with management. 1. Hepatic Encephalopathy: Appears related to underlying liver disease. Recent abdominal US revealed coarse echotexture of liver, normal spleen, and prominent vessels adjacent to the kidney and spleen on the left may represent va rices from portal hypertension. CXR and Brain CT scan on admission unremarkable. On lactulose daily and Xifaxan BID. Ammonia level trending back up. AMS resolved. S/p liver/spleen NM scan revealed moderate cirrhosis and no signs of splenomegaly. Monitor for now. GI on board. 2. Leukopenia: Uncertain etiology although could be related to cirrhosis. Liver/spleen NM scan without splenomegaly. Neutropenia predominant. FAUSTO negative. Counts stable, if counts trend down he may benefit from growth factor support. Patient is planning for bone marrow biopsy to be done outpatient. Monitor closely. 3. Thrombocytopenia: Appears secondary to underlying liver disease. Patient counts are stable and remain in noncritical range. Monitor for now. 4. Anemia: Recent anemia panel performed outpatient unremarkable without iron or vitamin deficiency and no evidence of hemolysis with normal retic count. Hemoglobin stable. Monitor for now. 5. Elevated troponin: Plan for stress test which can be done outpatient per Cardiology on board. 6. Obesity: Recommend lifestyle modifications including improving diet and exercise as his obesity is contributing to fatty liver. 7. DVT prophylaxis: SCDs/ambulatory. 8. Dispo: Patient clear for discharge from HemOnc standpoint. Discussed discharge follow up instructions with patient once he goes home.
[2019-10-07] MEDS: RIFAXIMIN 550 MG TABLET PO SCH (09:25)
[2019-10-07] MEDS: LACTULOSE SYRUP 20 GM/30 ML UDC PO SCH (09:25)
[2019-10-07 11:27] VITALS: BP 132/69
[2019-10-07 15:35] VITALS: BP 134/66
--- NOTE | 2019-10-07 18:01 | NUR ---
Dr Navin Harry cleared patient to go home, Dr Rodney Harry verbal discharge order recvd, patient discharged home, IV canula removed with tip intact, no ss of infiltration, no new prescriptions, His mom with him, patient denies any pain, no distress noted
--- NOTE | 2019-11-13 03:54 | Progress Note ---
DATE: 10/03/2019 Lj Farris had a consultation with Dr. Gina Dominguez, however, they had put my name, however, I have not seen this patient at all. MD TONY Clifton/YOKO /[id number] cc: Hansel Harry MD
--- NOTE | 2019-11-19 00:23 | Discharge Summary ---
CHIEF COMPLAINT: Weakness and lethargy, mild confusion. FINAL DIAGNOSIS: Liver cirrhosis; hepatic encephalopathy, resolved; anemia. DISPOSITION: Home. HOSPITAL COURSE: Consultants during the stay, cardiology due to laboratory findings of elevated troponins along with weakness, was reviewed by Dr. Faulkner and with his evaluation, impression was made of hepatic encephalopathy, elevated troponin. He states that elevated troponin is not consistent with acute coronary syndrome as no symptoms and EKG is nonischemic. Recommends that once the medical issues have resolved, recommending stress test. From the ER, the patient was placed on the Med-Surg floor. He was on cardiac diet. He was beginning treatment, was on IV fluids, continuing on his daily medications. Found to be more alert, responsive. There were no new complaints. Vital signs and labs were continued to be monitored closely. Noted that his issue of hepatic encephalopathy was resolving. It was noted that he also has pancytopenia. Ammonia levels continued to be reviewed. He was also being seen by GI regarding history of cirrhosis of the liver with generalized weakness, the elevated ammonia level and following Dr. Justin Harry's evaluation, his impression was hepatic encephalopathy, currently receiving lactulose and Xifaxan. Ammonia level has improved. The patient has become more alert and oriented. We will be monitoring CT of the abdomen. Anemia, guaiac-positive stool. The patient will need a full endoscopic evaluation, which can be done on an outpatient basis. He was seen by Dr. Dominguez regarding Hematology-Oncology issues and with his evaluation, his impression was hepatic encephalopathy, leukopenia, thrombocytopenia, anemia, elevated troponin, maintained DVT prophylaxis with Lovenox. We will be holding the medication for the procedure. Laboratory studies were beginning to show a decline in the potassium, which is being monitored further as the stay progressed. The hepatic encephalopathy was continued to improve. He will be maintained on Xifaxan and lactulose. The patient stabilized, recovered well, and was able to be discharged from the facility in stable condition. He will be discharged home. IMAGING: Brain CT reveals no abnormalities, no changes when compared to MRI of July of this year. Routine chest x-ray shows no evidence for acute disease. Final image was liver-spleen scan, nuclear medicine, findings reveal evidence consistent with moderate cirrhosis of liver given size of the liver and the extent of a colloid shift to the marrow and lungs. Foci of increased Kupffer cell activity in the right hepatic lobe consistent with foci of liver parenchyma regeneration. Hypersplenism is not present. Cultures; blood was negative. LABORATORY STUDIES: Begins with a CBC showing white cell count at 3500, H and H were 11.8 and 32.4, and platelets were 190,000. Followup CBCs shows white blood cell counts trending down to a final study of 2.55, H and H trended down to 10.5 and 29.4, and platelets were as low as final study of 68,000. Urinalysis unremarkable. Urine drug screen negative. Chemistries reveals initial panel, electrolytes to be normal. Total bilirubin was 1.8. AST was slightly elevated at 44. Ammonia level was elevated at 284. Cardiac enzymes were showing an elevated troponin of 0.323. Further electrolytes were stable. Repeat total bilirubin 1.8, AST improved slightly to 37. Followup troponin levels were normal. Followup ammonia level was 192, which continued to be monitored closely and fell down to 88, final study was 138. Final total bilirubin 1.9. Final AST 35. As mentioned, the patient stabilized and was able to be discharged home in stable condition. IVs were discontinued. No new prescriptions were written. The patient was denying any pain upon discharge. With his release, the patient will continue on his current diet. No equipments or supplies were necessary. No drain or Hodges was needed. Activity level as directed by me as well as Hematology and Cardiology. The patient will be following up with his PCP within 7 to 10 days. The patient will continue on levothyroxine sodium 50 mcg daily and vitamin D 50,000 units p.o. daily. Any further complaints or concerns that the patient has or any recurrence of possible similar symptoms, he will be contacting his PCP. Dictated by LEONIDES Alvarado Hansel Harry MD CC/ANASTASIAL /[id number]
== END 2019-10-07 18:05 | disposition home or self-care (01) | DRG 441 ==
LOC: ER 17:25 → ERHOLD 19:27 → MED/SURG3 20:15
DX: K72.90 Hepatic failure, unspecified without coma (principal); K72.00 Acute and subacute hepatic failure without coma; Z68.41 Body mass index [BMI] 40.0-44.9, adult; D72.819 Decreased white blood cell count, unspecified; D69.59 Other secondary thrombocytopenia; D64.9 Anemia, unspecified; K74.60 Unspecified cirrhosis of liver; I25.10 Atherosclerotic heart disease of native coronary artery without angina pectoris; E66.9 Obesity, unspecified; D73.1 Hypersplenism
CPT/HCPCS: 36415; 70450; 71045; 78215; 80053; 80307; 81001; 82140; 82550; 82553; 83605; 83690; 83880; 84484; 85025; 85610; 87040; 93005; 93306; 99284; A9541; J1650; J7030

== ENCOUNTER 2021-07-14 09:17 | Inpatient (IN) | payer OTHER ==
[~2021-07-14] VITALS: Ht 167.6 cm; Wt 99.8 kg
[~2021-07-14 09:17] MED LIST: LEVOTHYROXINE50 MCG PO; VITAMIN d PO
[2021-07-14] MEDS ORDERED: SODIUM CHLORIDE 0.9% 500ML 500 ML IV ONE ×2 (10:00→13:30)
[2021-07-14] MEDS ORDERED: CEFEPIME 2 GM in SODIUM CHLORIDE 0.9% 100 ML IV ONE (10:00)
[2021-07-14 10:23] LABS: BASOPHILS % 0.8 % (0.0-1.0); EOSINOPHILS % 0.8 % (0.0-6.0); HEMOGLOBIN 12.5 g/dL (14.0-18.0); LYMPHOCYTES # (AUTO) 0.7 (1.0-3.2); LYMPHOCYTES % 18.8 % (18.0-39.1); MEAN CORPUSCULAR HEMOGLOBIN 33.8 pg (28-32); MEAN CORPUSCULAR HGB CONC 34.7 g/dL (31-35); MEAN CORPUSCULAR VOLUME 97.3 fL (81-99); MONOCYTES # (AUTO) 0.6 (0.2-0.8); MONOCYTES % 15.7 % (4.4-11.3); NEUTROPHILS # (AUTO) 2.4 (2.1-6.9); NEUTROPHILS % 63.6 % (38.7-80.0); PLATELET COUNT 51 x10e3/uL (140-360); RED CELL DISTRIBUTION WIDTH 15.4 % (11.7-14.4)
[2021-07-14 10:35] LABS: INR 1.53; PROTHROMBIN TIME 19.6 seconds (11.9-14.5)
[2021-07-14 10:36] LABS: PARTIAL THROMBOPLASTIN TIME 48.2 seconds (23.8-35.5)
[2021-07-14 10:44] LABS: ALBUMIN 3.2 g/dL (3.5-5.0); ALBUMIN/GLOBULIN RATIO 0.9 (0.8-2.0); ANION GAP 13.6 mmol/L (8-16); CALCIUM 8.2 mg/dL (8.4-10.2); CREATININE, SERUM 0.68 mg/dL (0.72-1.25); MAGNESIUM 1.5 MG/DL (1.3-2.1); POTASSIUM 3.6 mmol/L (3.5-5.1)
[2021-07-14] MEDS ORDERED: SODIUM CHLORIDE 0.9% 1000ML 500 ML IV ONE (10:45)
[2021-07-14 10:50] LABS: CREATINE KINASE MB 0.6 ng/mL (0-5.0)
[2021-07-14 10:54] LABS: B-TYPE NATRIURETIC PEPTIDE2 99.8 pg/mL (0-100)
[2021-07-14] MEDS ORDERED: ACETAMINOPHEN 1000 MG/100 ML IV ONE (11:08)
[2021-07-14 11:33] LABS: CLARITY,URINE CLEAR (CLEAR); COLOR,URINE YELLOW (YELLOW)
[2021-07-14 11:34] LABS: KETONES,URINE TRACE (NEGATIVE); LEUKOCYTE ESTERASE ,URINE NEGATIVE (NEGATIVE); NITRITE,URINE NEGATIVE (NEGATIVE); PROTEIN,URINE DIPSTICK 2+ (NEGATIVE); URINE UROBILINOGEN 1 mg/dL (0.2 - 1)
[2021-07-14 11:45] LABS: BACTERIA,URINE FEW /HPF; EPITHELIAL CELLS,URINE RARE /LPF; RBC,URINE 21-50 /HPF (0-5); WBC,URINE (MAN) 0-5 /HPF (0-5)
[2021-07-14] MEDS ORDERED: ONDANSETRON HCL INJ 2MG/ML 2ML 2 MG/ML VIAL IV PRN (13:30)
[2021-07-14] MEDS ORDERED: SODIUM CHLORIDE 0.9% 1000ML 1,000 ML IV SCH (13:30)
[2021-07-14] MEDS ORDERED: ACETAMINOPHEN 1000 MG/100 ML IV PRN (13:30)
[2021-07-14] MEDS ORDERED: LACTULOSE SYRUP 20 GM/30 ML UDC PO ONE (13:30)
[2021-07-14] MEDS ORDERED: ACETAMINOPHEN 1000 MG/100 ML 100 ML IV ONE (18:51)
[2021-07-14 19:01] LABS: CREATINE KINASE MB 1.3 ng/mL (0-5.0)
[2021-07-14 20:40] VITALS: BP 130/62
[2021-07-14] MEDS ORDERED: GUAIFENESIN/CODEINE 5 ML LIQD PO PRN (21:00)
[2021-07-14 21:50] VITALS: BP 130/62
[2021-07-14] MEDS: CEFEPIME 1 GM in SODIUM CHLORIDE 0.9% 50ML 50 ML IV SCH (22:00)
[2021-07-14] MEDS ORDERED: SODIUM CHLORIDE 0.9% 250ML 250 ML ONE (22:09)
[2021-07-15] VITALS: BP 107/55
[2021-07-15 04:20] VITALS: BP 123/66
[2021-07-15 05:02] LABS: BASOPHILS % 0.9 % (0.0-1.0); EOSINOPHILS % 0.9 % (0.0-6.0); HEMOGLOBIN 10.9 g/dL (14.0-18.0); LYMPHOCYTES # (AUTO) 0.7 (1.0-3.2); MEAN CORPUSCULAR HEMOGLOBIN 33.5 pg (28-32); MEAN CORPUSCULAR HGB CONC 34.1 g/dL (31-35); MEAN CORPUSCULAR VOLUME 98.5 fL (81-99); MONOCYTES # (AUTO) 0.4 (0.2-0.8); MONOCYTES % 18.4 % (4.4-11.3); NEUTROPHILS % 45.8 % (38.7-80.0); RED BLOOD COUNT 3.25 x10e6/uL (4.3-5.7); RED CELL DISTRIBUTION WIDTH 15.4 % (11.7-14.4)
[2021-07-15 05:32] LABS: CREATINE KINASE MB 1.5 ng/mL (0-5.0)
[2021-07-15 05:37] LABS: PLATELET COUNT 36 x10e3/uL (140-360)
[2021-07-15 05:53] LABS: ALBUMIN 2.7 g/dL (3.5-5.0); ALBUMIN/GLOBULIN RATIO 0.9 (0.8-2.0); ANION GAP 11.8 mmol/L (8-16); CALCIUM 7.8 mg/dL (8.4-10.2); CREATININE, SERUM 0.6 mg/dL (0.72-1.25); POTASSIUM 3.8 mmol/L (3.5-5.1)
[2021-07-15] MEDS ORDERED: LEVOTHYROXINE SODIUM 50 MCG TAB PO SCH (06:00)
[2021-07-15 08:00] VITALS: BP 120/70
[2021-07-15 08:30] VITALS: BP 120/70
[2021-07-15] MEDS: CEFEPIME 1 GM in SODIUM CHLORIDE 0.9% 50ML 50 ML IV SCH (09:00)
[2021-07-15] MEDS ORDERED: LACTULOSE SYRUP 20 GM/30 ML UDC PO SCH (09:00)
[2021-07-15 12:00] VITALS: BP 145/66
== END 2021-07-15 15:22 | disposition home or self-care (01) | DRG 178 ==
LOC: ER 09:23 → ERHOLD 13:28 → MED/SURG2 18:48
DX: U07.1 COVID-19 (principal); D61.818 Other pancytopenia; K74.60 Unspecified cirrhosis of liver; D69.6 Thrombocytopenia, unspecified; R09.02 Hypoxemia; K72.90 Hepatic failure, unspecified without coma
CPT/HCPCS: 36415; 70450; 71045; 76700; 80053; 81001; 82140; 82550; 82553; 83605; 83735; 83880; 84484; 85025; 85610; 85730; 87040; 87086; 93005; 94799; 99285; J0456; J0692; J7030; J7040; J7050; U0002

== ENCOUNTER 2022-08-30 18:09 | Emergency (ER) | payer OTHER ==
[~2022-08-30] VITALS: Ht 167.6 cm; Wt 99.8 kg
[2022-08-30] MEDS ORDERED: ONDANSETRON HCL INJ 2MG/ML 2ML 2 MG/ML VIAL IV STA (19:18)
[2022-08-30] MEDS ORDERED: SODIUM CHLORIDE 0.9% 1000ML 1,000 ML IV ONE (19:30)
[2022-08-30 19:47] LABS: BASOPHILS % 0.4 % (0.0-1.0); EOSINOPHILS # (AUTO) 0.1 (0.0-0.4); EOSINOPHILS % 1.8 % (0.0-6.0); HEMATOCRIT 38.4 % (38.2-49.6); HEMOGLOBIN 13.4 g/dL (14.0-18.0); LYMPHOCYTES # (AUTO) 0.7 (1.0-3.2); LYMPHOCYTES % 15.5 % (18.0-39.1); MEAN CORPUSCULAR HEMOGLOBIN 34.9 pg (28-32); MEAN CORPUSCULAR HGB CONC 34.9 g/dL (31-35); MONOCYTES # (AUTO) 0.2 (0.2-0.8); MONOCYTES % 4.7 % (4.4-11.3); NEUTROPHILS # (AUTO) 3.5 (2.1-6.9); NEUTROPHILS % 77.2 % (38.7-80.0); RED BLOOD COUNT 3.84 x10e6/uL (4.3-5.7); RED CELL DISTRIBUTION WIDTH 15.6 % (11.7-14.4)
[2022-08-30 19:50] LABS: PLATELET COUNT 68 x10e3/uL (140-360)
[2022-08-30 20:05] LABS: ALBUMIN 3.2 g/dL (3.5-5.0); ALBUMIN/GLOBULIN RATIO 0.8 (0.8-2.0); ANION GAP 13.9 mmol/L (8-16); CALCIUM 8.4 mg/dL (8.4-10.2); CREATININE, SERUM 0.56 mg/dL (0.72-1.25); POTASSIUM 3.9 mmol/L (3.5-5.1)
[2022-08-30 20:26] LABS: INR 1.72; PROTHROMBIN TIME 20.3 seconds (11.9-14.5)
[2022-08-30 20:27] LABS: PARTIAL THROMBOPLASTIN TIME 50.1 seconds (23.8-35.5)
[2022-08-30 22:43] LABS: CLARITY,URINE SL CLOUDY (CLEAR); COLOR,URINE AMBER (YELLOW)
[2022-08-30 22:44] LABS: KETONES,URINE NEGATIVE (NEGATIVE); LEUKOCYTE ESTERASE ,URINE NEGATIVE (NEGATIVE); NITRITE,URINE POSITIVE (NEGATIVE); PROTEIN,URINE DIPSTICK 1+ (NEGATIVE); URINE UROBILINOGEN 0.2 mg/dL (0.2 - 1)
[2022-08-30] MEDS ORDERED: CEFTRIAXONE 1 GM VIAL IV ONE (22:45)
[2022-08-30 22:49] LABS: BACTERIA,URINE FEW /HPF; EPITHELIAL CELLS,URINE RARE /LPF; RBC,URINE >50 /HPF (0-5); WBC,URINE (MAN) 0-5 /HPF (0-5)
[2022-08-31 02:10] VITALS: BP 143/73
== END 2022-08-31 02:05 | disposition other institution (70) ==
LOC: ER 19:22
DX: R09.02 Hypoxemia (principal); K74.60 Unspecified cirrhosis of liver; R11.2 Nausea with vomiting, unspecified; R00.0 Tachycardia, unspecified; R19.7 Diarrhea, unspecified; Z20.822 Contact with and (suspected) exposure to COVID-19; R94.31 Abnormal electrocardiogram [ECG] [EKG]
CPT/HCPCS: 36415; 71046; 74176; 80053; 81001; 83605; 83690; 83880; 84484; 85025; 85610; 85730; 87400; 93005; 99284; J0696; J2405; J7030; U0002

== ENCOUNTER 2022-11-27 08:27 | Emergency (ER) | payer OTHER ==
[~2022-11-27] VITALS: Ht 167.6 cm; Wt 99.8 kg
[~2022-11-27 08:27] MED LIST changes: +Ammonium Lactate 12% Lotion TOP; +CEPHALEXIN500 MG PO; +LACTULOSE20 GM/30 M PO; +XIFAXAN550 MG PO; +vit d PO
[2022-11-27 08:51] LABS: BASOPHILS # (AUTO) 0.1 (0.0-0.1); BASOPHILS % 1.5 % (0.0-1.0); EOSINOPHILS # (AUTO) 0.1 (0.0-0.4); EOSINOPHILS % 2.7 % (0.0-6.0); HEMATOCRIT 34.9 % (38.2-49.6); HEMOGLOBIN 12.2 g/dL (14.0-18.0); LYMPHOCYTES # (AUTO) 1.3 (1.0-3.2); LYMPHOCYTES % 37.2 % (18.0-39.1); MEAN CORPUSCULAR HEMOGLOBIN 34.4 pg (28-32); MEAN CORPUSCULAR VOLUME 98.3 fL (81-99); MONOCYTES # (AUTO) 0.2 (0.2-0.8); MONOCYTES % 6.2 % (4.4-11.3); NEUTROPHILS # (AUTO) 1.8 (2.1-6.9); NEUTROPHILS % 52.1 % (38.7-80.0); PLATELET COUNT 58 x10e3/uL (140-360); RED BLOOD COUNT 3.55 x10e6/uL (4.3-5.7); RED CELL DISTRIBUTION WIDTH 14.1 % (11.7-14.4)
[2022-11-27 09:09] LABS: ALBUMIN 2.9 g/dL (3.5-5.0); ALBUMIN/GLOBULIN RATIO 0.7 (0.8-2.0); ANION GAP 10.3 mmol/L (8-16); CALCIUM 8.6 mg/dL (8.4-10.2); CREATININE, SERUM 0.52 mg/dL (0.72-1.25); POTASSIUM 4.3 mmol/L (3.5-5.1)
[2022-11-27] MEDS ORDERED: LACTULOSE SYRUP 20 GM/30 ML UDC PO ONE (09:15)
[2022-11-27 09:38] LABS: CLARITY,URINE CLOUDY (CLEAR); COLOR,URINE YELLOW (YELLOW); KETONES,URINE NEGATIVE (NEGATIVE); LEUKOCYTE ESTERASE ,URINE NEGATIVE (NEGATIVE); NITRITE,URINE NEGATIVE (NEGATIVE); PROTEIN,URINE DIPSTICK 2+ (NEGATIVE)
[2022-11-27 09:43] LABS: BACTERIA,URINE FEW /HPF; EPITHELIAL CELLS,URINE FEW /LPF; RBC,URINE >50 /HPF (0-5); WBC,URINE (MAN) 0-5 /HPF (0-5)
[2022-11-27 10:12] VITALS: O2SAT 100
== END 2022-11-27 10:13 | disposition home or self-care (01) ==
LOC: ER 08:33
DX: E72.20 Disorder of urea cycle metabolism, unspecified (principal); K76.9 Liver disease, unspecified
CPT/HCPCS: 36415; 80053; 81001; 82140; 85025; 99283

== ENCOUNTER 2022-12-04 04:44 | Emergency (ER) | payer OTHER ==
[~2022-12-04] VITALS: Ht 167.6 cm; Wt 99.8 kg
[2022-12-04 05:14] LABS: BASOPHILS # (AUTO) 0.1 (0.0-0.1); BASOPHILS % 1.7 % (0.0-1.0); EOSINOPHILS # (AUTO) 0.1 (0.0-0.4); EOSINOPHILS % 3.7 % (0.0-6.0); HEMATOCRIT 34.9 % (38.2-49.6); HEMOGLOBIN 12.3 g/dL (14.0-18.0); LYMPHOCYTES # (AUTO) 1.5 (1.0-3.2); LYMPHOCYTES % 42.4 % (18.0-39.1); MEAN CORPUSCULAR HEMOGLOBIN 34.2 pg (28-32); MEAN CORPUSCULAR HGB CONC 35.2 g/dL (31-35); MEAN CORPUSCULAR VOLUME 96.9 fL (81-99); MONOCYTES # (AUTO) 0.2 (0.2-0.8); MONOCYTES % 5.6 % (4.4-11.3); NEUTROPHILS # (AUTO) 1.7 (2.1-6.9); NEUTROPHILS % 46.3 % (38.7-80.0); PLATELET COUNT 56 x10e3/uL (140-360); RED CELL DISTRIBUTION WIDTH 13.4 % (11.7-14.4)
[2022-12-04 05:26] LABS: ALBUMIN/GLOBULIN RATIO 0.7 (0.8-2.0); ANION GAP 10.7 mmol/L (8-16); CALCIUM 8.5 mg/dL (8.4-10.2); CREATININE, SERUM 0.6 mg/dL (0.72-1.25); POTASSIUM 3.7 mmol/L (3.5-5.1)
[2022-12-04 07:01] LABS: CLARITY,URINE TURBID (CLEAR); COLOR,URINE RED (YELLOW)
[2022-12-04 07:02] LABS: KETONES,URINE LARGE (NEGATIVE); LEUKOCYTE ESTERASE ,URINE LARGE (NEGATIVE); NITRITE,URINE NEGATIVE (NEGATIVE); PROTEIN,URINE DIPSTICK >=300 (NEGATIVE)
[2022-12-04 07:16] LABS: BACTERIA,URINE MODERATE /HPF; EPITHELIAL CELLS,URINE RARE /LPF; RBC,URINE >50 /HPF (0-5)
[2022-12-04 07:17] LABS: CALCIUM OXALATE CRYSTALS,UR RARE (FEW)
[2022-12-04] MEDS ORDERED: SODIUM CHLORIDE 0.9% 1000ML 1,000 ML IV STA (07:24)
[2022-12-04] MEDS ORDERED: IOPAMIDOL 370 MG/ML 100 ML INFUS..BTL INJ ONE (07:35)
[2022-12-04] MEDS ORDERED: SODIUM CHLORIDE 0.9% 250ML 0 ML ONE (07:36)
[2022-12-04 08:16] VITALS: O2SAT 97
[2022-12-04] MEDS ORDERED: ULTRAM 50MG50 MG PO (10:31)
[2022-12-04] MEDS ORDERED: CEFUROXIME250 MG PO (10:31)
== END 2022-12-04 11:14 | disposition home or self-care (01) ==
LOC: ER 04:53
DX: R31.9 Hematuria, unspecified (principal); N39.0 Urinary tract infection, site not specified; N20.1 Calculus of ureter; K74.60 Unspecified cirrhosis of liver; R74.8 Abnormal levels of other serum enzymes; K40.90 Unilateral inguinal hernia, without obstruction or gangrene, not specified as recurrent; R16.1 Splenomegaly, not elsewhere classified
CPT/HCPCS: 36415; 74176; 80053; 81001; 85025; 87086; 99284; J0696; J7030; J7050; Q9967

== ENCOUNTER 2023-01-09 10:51 | Emergency (ER) | payer OTHER ==
[~2023-01-09] VITALS: Ht 167.6 cm; Wt 97.5 kg
[~2023-01-09 10:51] MED LIST changes: +CEFUROXIME250 MG PO; +ULTRAM 50MG50 MG PO
[2023-01-09 13:01] VITALS: BP 112/46; PULSE 74; RESP 18; O2SAT 97
== END 2023-01-09 13:03 | disposition home or self-care (01) ==
LOC: ER 10:56
DX: R53.1 Weakness (principal); R09.81 Nasal congestion; K76.9 Liver disease, unspecified; Z20.822 Contact with and (suspected) exposure to COVID-19
CPT/HCPCS: 99282; U0002

== ENCOUNTER 2023-08-13 14:33 | Inpatient (IN) | payer OTHER ==
[~2023-08-13] VITALS: Ht 157.5 cm; Wt 89.0 kg
[~2023-08-13 14:33] MED LIST changes: +FOLIC ACID0.4 MG PO; +LEVOTHYROXINE75 MCG PO; +PANTOPRAZOLE SO40 MG PO; +VITAMIN B-1100 M1 PO
[2023-08-13 16:19] LABS: BASOPHILS # (AUTO) 0.1 (0.0-0.1); BASOPHILS % 1.5 % (0.0-1.0); EOSINOPHILS # (AUTO) 0.1 (0.0-0.4); EOSINOPHILS % 4.2 % (0.0-6.0); HEMATOCRIT 24.9 % (38.2-49.6); HEMOGLOBIN 8.2 g/dL (14.0-18.0); LYMPHOCYTES # (AUTO) 1.1 (1.0-3.2); LYMPHOCYTES % 33.6 % (18.0-39.1); MEAN CORPUSCULAR HEMOGLOBIN 33.3 pg (28-32); MEAN CORPUSCULAR HGB CONC 32.9 g/dL (31-35); MEAN CORPUSCULAR VOLUME 101.2 fL (81-99); MONOCYTES # (AUTO) 0.3 (0.2-0.8); MONOCYTES % 7.8 % (4.4-11.3); NEUTROPHILS # (AUTO) 1.8 (2.1-6.9); NEUTROPHILS % 52.6 % (38.7-80.0); RED BLOOD COUNT 2.46 x10e6/uL (4.3-5.7); RED CELL DISTRIBUTION WIDTH 18.8 % (11.7-14.4); WHITE BLOOD COUNT 3.33 x10e3/uL (4.8-10.8)
[2023-08-13 16:20] LABS: PLATELET COUNT 52 x10e3/uL (140-360)
[2023-08-13 16:38] LABS: ALBUMIN 2.5 g/dL (3.5-5.0); ALBUMIN/GLOBULIN RATIO 0.5 (0.8-2.0); ANION GAP 11.6 mmol/L (8-16); BILIRUBIN,TOTAL 6.5 mg/dL (0.2-1.2); CALCIUM 8.9 mg/dL (8.4-10.2); CREATININE, SERUM 1.21 mg/dL (0.72-1.25); POTASSIUM 4.6 mmol/L (3.5-5.1); TOTAL PROTEIN 7.2 g/dL (6.5-8.1)
[2023-08-13] MEDS ORDERED: Morphine 4mg INJECTION 4 MG/ML INJ IV PRN (18:00)
[2023-08-13] MEDS ORDERED: ONDANSETRON HCL INJ 2MG/ML 2ML 2 MG/ML VIAL IV PRN (18:00)
[2023-08-13 18:26] LABS: TROPONIN I 0.029 ng/mL (0-0.300)
[2023-08-13] MEDS: LACTULOSE SYRUP 20 GM/30 ML UDC PO STA (18:56)
[2023-08-13] MEDS: SODIUM CHLORIDE 0.9% 1000ML 1,000 ML IV SCH (18:58)
[2023-08-13 20:35] VITALS: PULSE 79; RESP 20; O2SAT 100
[2023-08-14] VITALS (10 sets, daily range): BP systolic 100–147; BP diastolic 40–98; PULSE 72–86; RESP 17–21; TEMP 97.2–98.5; O2SAT 98–100
[2023-08-14] MEDS ORDERED: LASIX10 MG/ML PO (01:29)
[2023-08-14 02:50] LABS: TROPONIN I 0.015 ng/mL (0-0.300)
[2023-08-14 07:03] LABS: ALBUMIN 2.1 g/dL (3.5-5.0); ALBUMIN/GLOBULIN RATIO 0.5 (0.8-2.0); ANION GAP 13.2 mmol/L (8-16); BILIRUBIN,TOTAL 6.2 mg/dL (0.2-1.2); CALCIUM 8.1 mg/dL (8.4-10.2); CREATININE, SERUM 0.84 mg/dL (0.72-1.25); TOTAL PROTEIN 6.1 g/dL (6.5-8.1)
[2023-08-14 07:07] LABS: EOSINOPHILS # (AUTO) 0.2 (0.0-0.4); EOSINOPHILS % 5.2 % (0.0-6.0); HEMATOCRIT 22.6 % (38.2-49.6); HEMOGLOBIN 7.4 g/dL (14.0-18.0); MEAN CORPUSCULAR HEMOGLOBIN 33.3 pg (28-32); MEAN CORPUSCULAR HGB CONC 32.7 g/dL (31-35); MEAN CORPUSCULAR VOLUME 101.8 fL (81-99); MONOCYTES # (AUTO) 0.2 (0.2-0.8); MONOCYTES % 7.2 % (4.4-11.3); NEUTROPHILS # (AUTO) 1.5 (2.1-6.9); NEUTROPHILS % 52.3 % (38.7-80.0); PLATELET COUNT 39 x10e3/uL (140-360); RED BLOOD COUNT 2.22 x10e6/uL (4.3-5.7); RED CELL DISTRIBUTION WIDTH 18.6 % (11.7-14.4); WHITE BLOOD COUNT 2.91 x10e3/uL (4.8-10.8)
[2023-08-14 07:08] LABS: POTASSIUM 5.2 mmol/L (3.5-5.1)
[2023-08-14 07:33] LABS: TROPONIN I 0.013 ng/mL (0-0.300)
[2023-08-14] MEDS: LACTULOSE SYRUP 20 GM/30 ML UDC PO SCH (09:23)
[2023-08-14] MEDS: FUROSEMIDE 40 MG TAB PO SCH (09:23)
[2023-08-14] MEDS: RIFAXIMIN 550 MG TABLET PO SCH (09:23)
[2023-08-14] MEDS: LEVOTHYROXINE SODIUM 75 MCG TAB PO SCH (12:27)
[2023-08-14 20:16] LABS: % IRON SATURATION 95 % (15-50); IRON 157 ug/dL (65-175); TOTAL IRON BINDING CAPACITY 165 ug/dL (261-478); TRANSFERRIN 118 mg/dL (174-364)
[2023-08-15] VITALS (9 sets, daily range): BP systolic 100–125; BP diastolic 46–67; PULSE 60–96; RESP 17–21; TEMP 97.1–97.9; O2SAT 96–100
[2023-08-15 07:02] LABS: BASOPHILS % 1.3 % (0.0-1.0); EOSINOPHILS # (AUTO) 0.1 (0.0-0.4); EOSINOPHILS % 1.9 % (0.0-6.0); MEAN CORPUSCULAR HEMOGLOBIN 33.8 pg (28-32); MEAN CORPUSCULAR HGB CONC 33.3 g/dL (31-35); MEAN CORPUSCULAR VOLUME 101.4 fL (81-99); MONOCYTES # (AUTO) 0.2 (0.2-0.8); MONOCYTES % 7.2 % (4.4-11.3); NEUTROPHILS # (AUTO) 1.9 (2.1-6.9); NEUTROPHILS % 59.6 % (38.7-80.0); PLATELET COUNT 44 x10e3/uL (140-360); RED BLOOD COUNT 2.07 x10e6/uL (4.3-5.7); RED CELL DISTRIBUTION WIDTH 17.9 % (11.7-14.4)
[2023-08-15 07:50] LABS: ALBUMIN 2.1 g/dL (3.5-5.0); ALBUMIN/GLOBULIN RATIO 0.5 (0.8-2.0); ANION GAP 11.2 mmol/L (8-16); BILIRUBIN,TOTAL 9.5 mg/dL (0.2-1.2); CALCIUM 8.4 mg/dL (8.4-10.2); CREATININE, SERUM 0.87 mg/dL (0.72-1.25); POTASSIUM 4.2 mmol/L (3.5-5.1); TOTAL PROTEIN 6.2 g/dL (6.5-8.1)
[2023-08-15] MEDS: SODIUM CHLORIDE 0.9% 250ML 250 ML IV ONE (12:15)
[2023-08-15] MEDS: SODIUM CHLORIDE 0.9% 250ML 250 ML ONE ×2 (12:43→12:44)
[2023-08-16] VITALS (7 sets, daily range): BP systolic 95–112; BP diastolic 45–56; PULSE 77–98; RESP 17–18; TEMP 97.3–97.8; O2SAT 97–100
[2023-08-16 06:13] LABS: ALBUMIN/GLOBULIN RATIO 0.5 (0.8-2.0); ANION GAP 10.9 mmol/L (8-16); BILIRUBIN,TOTAL 9.5 mg/dL (0.2-1.2); CREATININE, SERUM 1.04 mg/dL (0.72-1.25); TOTAL PROTEIN 5.9 g/dL (6.5-8.1)
[2023-08-16 06:15] LABS: POTASSIUM 2.9 mmol/L (3.5-5.1)
[2023-08-16 06:18] LABS: BASOPHILS # (AUTO) 0.1 (0.0-0.1); BASOPHILS % 1.5 % (0.0-1.0); EOSINOPHILS # (AUTO) 0.1 (0.0-0.4); EOSINOPHILS % 3.6 % (0.0-6.0); HEMATOCRIT 21.9 % (38.2-49.6); HEMOGLOBIN 7.4 g/dL (14.0-18.0); LYMPHOCYTES % 28.9 % (18.0-39.1); MEAN CORPUSCULAR HEMOGLOBIN 33.3 pg (28-32); MEAN CORPUSCULAR HGB CONC 33.8 g/dL (31-35); MEAN CORPUSCULAR VOLUME 98.6 fL (81-99); MONOCYTES # (AUTO) 0.3 (0.2-0.8); MONOCYTES % 8.9 % (4.4-11.3); NEUTROPHILS # (AUTO) 1.9 (2.1-6.9); NEUTROPHILS % 56.8 % (38.7-80.0); PLATELET COUNT 45 x10e3/uL (140-360); RED BLOOD COUNT 2.22 x10e6/uL (4.3-5.7); RED CELL DISTRIBUTION WIDTH 18.4 % (11.7-14.4); WHITE BLOOD COUNT 3.36 x10e3/uL (4.8-10.8)
[2023-08-16] MEDS: POTASSIUM CHLORIDE 20 MEQ TAB CR PO ONE (08:58)
[2023-08-16] MEDS: ACETAMINOPHEN 325 MG TAB PO ONE (09:42)
[2023-08-16] MEDS ORDERED: ONDANSETRON HCL 4 MG ORAL DISINTEGRATING TAB PO PRN (10:00)
[2023-08-16 14:11] LABS: ANION GAP 13.1 mmol/L (8-16); CALCIUM 8.1 mg/dL (8.4-10.2); CREATININE, SERUM 1.26 mg/dL (0.72-1.25)
[2023-08-16 14:27] LABS: CLARITY,URINE CLEAR (CLEAR); COLOR,URINE YELLOW (YELLOW); LEUKOCYTE ESTERASE ,URINE NEGATIVE (NEGATIVE); NITRITE,URINE NEGATIVE (NEGATIVE); PH,URINE 5 (5 - 7)
[2023-08-16 14:28] LABS: AMPHETAMINES SCREEN,URINE NEGATIVE (NEGATIVE); BENZODIAZEPINES SCREEN,URINE NEGATIVE (NEGATIVE); BILIRUBIN,URINE NEGATIVE (NEGATIVE); CANNABINOIDS SCREEN,URINE NEGATIVE (NEGATIVE); GLUCOSE, URINE NEGATIVE (NEGATIVE); KETONES,URINE NEGATIVE (NEGATIVE); METHADONE SCREEN, URINE NEGATIVE (NEGATIVE); OPIATES SCREEN,URINE NEGATIVE (NEGATIVE); PHENCYCLIDINE SCREEN,URINE NEGATIVE (NEGATIVE); PROTEIN,URINE DIPSTICK NEGATIVE (NEGATIVE); URINE UROBILINOGEN 0.2 mg/dL (0.2 - 1)
[2023-08-16 14:29] LABS: POTASSIUM 3.1 mmol/L (3.5-5.1)
[2023-08-16 14:41] LABS: WBC,URINE (MAN) 0-5 /HPF (0-5)
[2023-08-16 14:42] LABS: AMORPHOUS SEDIMENT,URINE FEW (FEW); BACTERIA,URINE RARE /HPF
[2023-08-16] MEDS: MELATONIN 5 MG TABLET PO PRN (20:53)
[2023-08-17] VITALS (9 sets, daily range): BP systolic 89–103; BP diastolic 39–51; PULSE 79–84; RESP 17–20; TEMP 97.8–98.9; O2SAT 96–100
[2023-08-17 05:46] LABS: BASOPHILS % 0.7 % (0.0-1.0); EOSINOPHILS # (AUTO) 0.2 (0.0-0.4); HEMATOCRIT 23.7 % (38.2-49.6); LYMPHOCYTES # (AUTO) 1.1 (1.0-3.2); LYMPHOCYTES % 35.2 % (18.0-39.1); MEAN CORPUSCULAR HEMOGLOBIN 33.1 pg (28-32); MEAN CORPUSCULAR HGB CONC 33.8 g/dL (31-35); MEAN CORPUSCULAR VOLUME 97.9 fL (81-99); MONOCYTES # (AUTO) 0.3 (0.2-0.8); MONOCYTES % 8.7 % (4.4-11.3); NEUTROPHILS # (AUTO) 1.5 (2.1-6.9); NEUTROPHILS % 50.1 % (38.7-80.0); PLATELET COUNT 48 x10e3/uL (140-360); RED BLOOD COUNT 2.42 x10e6/uL (4.3-5.7); RED CELL DISTRIBUTION WIDTH 18.2 % (11.7-14.4); WHITE BLOOD COUNT 2.98 x10e3/uL (4.8-10.8)
[2023-08-17 06:13] LABS: ALBUMIN 2.2 g/dL (3.5-5.0); ALBUMIN/GLOBULIN RATIO 0.5 (0.8-2.0); ANION GAP 14.4 mmol/L (8-16); BILIRUBIN,TOTAL 8.3 mg/dL (0.2-1.2); CREATININE, SERUM 1.63 mg/dL (0.72-1.25); TOTAL PROTEIN 6.6 g/dL (6.5-8.1)
[2023-08-17 06:14] LABS: POTASSIUM 3.4 mmol/L (3.5-5.1)
[2023-08-17] MEDS: LEVOTHYROXINE SODIUM 50 MCG TAB PO SCH (06:18)
[2023-08-17] MEDS: POTASSIUM CHLORIDE 10MEQ EA PO SCH (08:46)
[2023-08-17] MEDS: SODIUM CHLORIDE 0.9% 1000ML 1,000 ML IV SCH (10:16)
[2023-08-17] MEDS: ACETAMINOPHEN 325 MG TAB PO PRN (12:41)
[2023-08-17 15:47] LABS: ANION GAP 12.2 mmol/L (8-16); CALCIUM 7.7 mg/dL (8.4-10.2); CREATININE, SERUM 1.53 mg/dL (0.72-1.25)
[2023-08-17 15:50] LABS: POTASSIUM 3.2 mmol/L (3.5-5.1)
[2023-08-17] MEDS: POTASSIUM CHLORIDE 20 MEQ TAB CR PO ONE (18:06)
[2023-08-18 05:58] VITALS: BP 99/44; PULSE 79; RESP 17; TEMP 98.1; O2SAT 99
[2023-08-18 08:18] VITALS: BP 94/49; PULSE 77; RESP 16; TEMP 98.5; O2SAT 100
[2023-08-18 08:21] VITALS: BP 94/49; PULSE 77; RESP 16; TEMP 98.5; O2SAT 100
[2023-08-18 10:09] LABS: BASOPHILS % 0.6 % (0.0-1.0); EOSINOPHILS # (AUTO) 0.2 (0.0-0.4); EOSINOPHILS % 7.1 % (0.0-6.0); HEMATOCRIT 22.1 % (38.2-49.6); HEMOGLOBIN 7.3 g/dL (14.0-18.0); LYMPHOCYTES # (AUTO) 1.3 (1.0-3.2); MEAN CORPUSCULAR HEMOGLOBIN 32.9 pg (28-32); MEAN CORPUSCULAR VOLUME 99.5 fL (81-99); MONOCYTES # (AUTO) 0.3 (0.2-0.8); MONOCYTES % 8.4 % (4.4-11.3); NEUTROPHILS # (AUTO) 1.3 (2.1-6.9); NEUTROPHILS % 40.6 % (38.7-80.0); RED BLOOD COUNT 2.22 x10e6/uL (4.3-5.7); RED CELL DISTRIBUTION WIDTH 17.9 % (11.7-14.4); WHITE BLOOD COUNT 3.09 x10e3/uL (4.8-10.8)
[2023-08-18 10:31] LABS: ALBUMIN 2.1 g/dL (3.5-5.0); ALBUMIN/GLOBULIN RATIO 0.5 (0.8-2.0); ANION GAP 12.7 mmol/L (8-16); BILIRUBIN,TOTAL 7.4 mg/dL (0.2-1.2); CALCIUM 7.7 mg/dL (8.4-10.2); CREATININE, SERUM 1.48 mg/dL (0.72-1.25); POTASSIUM 3.7 mmol/L (3.5-5.1); TOTAL PROTEIN 6.2 g/dL (6.5-8.1)
[2023-08-18 10:32] LABS: PLATELET COUNT 46 x10e3/uL (140-360)
[2023-08-18] MEDS ORDERED: SYNTHROID50 MCG PO (11:38)
[2023-08-18 11:57] VITALS: BP 101/45; PULSE 77; RESP 16; TEMP 97.4; O2SAT 97
[2023-08-18] MEDS ORDERED: PANTOPRAZOLE SOD 40 MG TABEC PO SCH (21:00)
== END 2023-08-18 15:21 | disposition home or self-care (01) | DRG 442 ==
LOC: ER 15:46 → ERHOLD 17:54 → MED/SURG 08-14 00:13
PROVIDERS: ADMIT Internal Medicine; ATTEND Internal Medicine
PROC: 30243P1 Transfusion of Nonautologous Frozen Red Cells into Central Vein, Percutaneous Approach (ICD-10-PCS; principal; 2023-08-15)
DX: K76.82 Hepatic encephalopathy (principal); D61.818 Other pancytopenia; E72.20 Disorder of urea cycle metabolism, unspecified; D68.9 Coagulation defect, unspecified; N17.9 Acute kidney failure, unspecified; E87.1 Hypo-osmolality and hyponatremia; K74.60 Unspecified cirrhosis of liver; K72.90 Hepatic failure, unspecified without coma; D64.89 Other specified anemias; K75.4 Autoimmune hepatitis; E80.6 Other disorders of bilirubin metabolism; R53.1 Weakness; E87.6 Hypokalemia; E03.9 Hypothyroidism, unspecified; Z59.6 Low income; Z63.8 Other specified problems related to primary support group; Z79.890 Hormone replacement therapy; Z79.899 Other long term (current) drug therapy; Z20.822 Contact with and (suspected) exposure to COVID-19; Z91.041 Radiographic dye allergy status
CPT/HCPCS: 36415; 70450; 76705; 80048; 80053; 80307; 80320; 81001; 82140; 82248; 82550; 82607; 82746; 82948; 83010; 83540; 83615; 84155; 84300; 84439; 84443; 84466; 84480; 84484; 85025; 85045; 86850; 86900; 86920; 94799; 99284; J2270; J2543; J7030; J7050; P9016; U0002